=== PATIENT | female | born 1965 | race Two or more races ===

== ENCOUNTER 2017-03-22 14:26 | Inpatient (IN) | payer SELFPAY ==
[~2017-03-22] VITALS: Ht 157.5 cm; Wt 61.2 kg
[2017-03-22] MEDS ORDERED: SODIUM CHLORIDE 0.9% 500 ML IVB ONE (15:02)
[2017-03-22] MEDS ORDERED: ONDANSETRON HCL 4 MG/2 ML VIAL IV ONE (15:15)
[2017-03-22] MEDS ORDERED: metroNIDAZOLE 500MG/100ML 100 ML IV ONE (15:45)
[2017-03-22 16:29] LABS: Mean Corpuscular Hemoglobin 30.5 pg (28.0-32.0); Mean Corpuscular Hgb Conc. 33.4 g/dL (32.0-36.0); Mean Corpuscular Volume 91.2 fL (80.0-100.0); Mean Platelet Volume 8.2 fL (6.9-10.8)
[2017-03-22 16:31] LABS: Hematocrit 54.1 % (36.0-46.0); Hemoglobin 18.1 g/dL (12.2-16.2); Platelet Count (auto) 217 10^3/uL (140-450); Red Cell Distribution Width 13.5 % (11.8-14.3); White Blood Cell 18.2 10^3/uL (4.4-10.8)
[2017-03-22 16:39] LABS: Lactic Acid w/Reflex 2.1 mmol/L (0.4-2.0)
[2017-03-22 16:40] LABS: BUN/Creatinine Ratio 14.3; Bilirubin, Total 0.6 mg/dL (0.2-1.0); Calcium 10.1 mg/dL (8.5-10.1); Magnesium 2.2 mg/dL (1.6-2.6); Potassium 4.8 mmol/L (3.5-5.1); Total Protein 10.4 g/dL (6.4-8.2)
[2017-03-22 17:14] LABS: REFLEX LACTIC ACID YES OR NO YES
[2017-03-22 17:26] LABS: Metamyelocytes % 0; Myelocytes % 0; Promyelocytes % 0; Reactive Lymphocytes 0
[2017-03-22] MEDS ORDERED: MORPHINE SULF INJ 2 MG/ML SYRINGE 1ML IV PRN ×2 (17:30)
[2017-03-22] MEDS ORDERED: HYDROcodone-ACET 5/325MG TAB PO PRN (17:30)
[2017-03-22] MEDS ORDERED: TEMAZEPAM 15 MG CAP PO PRN (17:30)
[2017-03-22] MEDS ORDERED: DEXTROSE (50%) 50ML SYRG IV PRN (17:30)
[2017-03-22] MEDS ORDERED: NITROGLYCERIN 0.4 MG SL TAB SL PRN (17:30)
[2017-03-22] MEDS ORDERED: LEVOFLOXACIN 500MG 100 ML IV ONE (17:30)
[2017-03-22] MEDS: SODIUM CHLORIDE 0.9% 1,000 ML IV SCH (17:49)
[2017-03-22] MEDS: metroNIDAZOLE 500MG/100ML 100 ML IV SCH (17:52)
[2017-03-22 19:28] LABS: Platelet Estimate Adequate
[2017-03-22 20:30] VITALS: BP 129/63
[2017-03-22] MEDS: FAMOTIDINE 20 MG TAB PO SCH (21:49)
[2017-03-22] MEDS: ENALAPRIL MALEATE 2.5 MG TAB PO SCH (21:51)
[2017-03-22] MEDS: ACCU-CHEK COMFORT CURVE STRIP VI SCH (21:57)
[2017-03-22] MEDS: InsuLIN REG 1unit/0.01ml Soln (100units/ml) SC SCH (21:58)
[2017-03-22 22:00] VITALS: BP 129/63
[2017-03-23] MEDS: metroNIDAZOLE 500MG/100ML 100 ML IV SCH ×4 (00:15→18:11)
[2017-03-23] MEDS ORDERED: ENAL2.5T PO (01:22)
[2017-03-23] MEDS ORDERED: LEVO100T8 PO (01:22)
[2017-03-23 04:34] VITALS: BP 116/68
[2017-03-23 06:12] LABS: Basophils # (auto) 0 uL; Eosinophils # (auto) 0 uL; Eosinophils % (auto) 0.2 % (0.0-7.0); Hemoglobin 12.6 g/dL (12.2-16.2); Lymphocytes # (auto) 1.4 uL; Lymphocytes % (auto) 10.7 % (10.0-50.0); Mean Corpuscular Hemoglobin 30.1 pg (28.0-32.0); Mean Corpuscular Hgb Conc. 33.1 g/dL (32.0-36.0); Mean Platelet Volume 8.4 fL (6.9-10.8); Monocytes # (auto) 0.9 uL; Monocytes % (auto) 7.3 % (0.0-12.0); Neutrophils # (auto) 10.4 uL; Neutrophils % (auto) 81.8 % (37.0-80.0); Platelet Count (auto) 171 10^3/uL (140-450); Red Cell Distribution Width 13.2 % (11.8-14.3); White Blood Cell 12.7 10^3/uL (4.4-10.8)
[2017-03-23] MEDS: SODIUM CHLORIDE 0.9% 1,000 ML IV SCH ×3 (06:24→18:28)
[2017-03-23 06:30] LABS: Albumin 2.8 g/dL (3.4-5.0); BUN/Creatinine Ratio 13.8; Calcium 7.6 mg/dL (8.5-10.1); Potassium 3.9 mmol/L (3.5-5.1)
[2017-03-23] MEDS: LEVOTHYROXINE SODIUM 100 MCG TAB PO SCH (06:31)
[2017-03-23] MEDS: ACCU-CHEK COMFORT CURVE STRIP VI SCH ×4 (06:32→21:48)
[2017-03-23] MEDS: InsuLIN REG 1unit/0.01ml Soln (100units/ml) SC SCH ×4 (06:32→21:48)
[2017-03-23 06:33] LABS: Bilirubin, Total 0.5 mg/dL (0.2-1.0); Total Protein 6.5 g/dL (6.4-8.2)
[2017-03-23 08:27] VITALS: BP 112/62
[2017-03-23] MEDS: LEVOFLOXACIN 500MG 100 ML IV SCH (09:48)
[2017-03-23] MEDS: FAMOTIDINE 20 MG TAB PO SCH ×2 (09:50→21:36)
[2017-03-23] MEDS: ENALAPRIL MALEATE 2.5 MG TAB PO SCH ×2 (09:50→21:37)
[2017-03-23] MEDS: MULTIPLE VITAMIN TAB PO SCH (09:51)
[2017-03-23] MEDS: ACETAMINOPHEN 325 MG TAB PO PRN (11:07)
[2017-03-23 13:00] VITALS: BP 136/61
[2017-03-23 14:18] LABS: Urine Bilirubin Negative (Negative); Urine Blood Negative /uL (Negative); Urine Color Yellow (Yellow); Urine Glucose Normal (Normal); Urine Ketone 1+ (Negative); Urine Mucus FEW (None Seen); Urine Nitrite Negative (Negative); Urine RBC <1 /hpf (0 - 4); Urine Squamous Epithelial Cell FEW /hpf (<5); Urine Urobilinogen Normal (Negative)
[2017-03-23] MEDS: ONDANSETRON HCL 4 MG/2 ML VIAL IV PRN ×2 (15:51→21:37)
[2017-03-23 17:48] VITALS: BP 140/63
[2017-03-23] MEDS: Boost Glucose Control 8 Ounces PO SCH ×2 (18:12→21:48)
[2017-03-23 20:00] VITALS: BP 143/70
[2017-03-23 22:00] VITALS: BP 143/70
[2017-03-24] MEDS: metroNIDAZOLE 500MG/100ML 100 ML IV SCH ×3 (00:22→11:58)
[2017-03-24] MEDS: SODIUM CHLORIDE 0.9% 1,000 ML IV SCH ×2 (03:18→11:59)
[2017-03-24 05:00] VITALS: BP 126/79
[2017-03-24 05:16] LABS: Basophils # (auto) 0 uL; Basophils % (auto) 0.1 % (0.0-2.0); Eosinophils # (auto) 0.1 uL; Eosinophils % (auto) 0.8 % (0.0-7.0); Hematocrit 35.6 % (36.0-46.0); Hemoglobin 12.1 g/dL (12.2-16.2); Lymphocytes # (auto) 1.7 uL; Lymphocytes % (auto) 22.1 % (10.0-50.0); Mean Corpuscular Hemoglobin 30.8 pg (28.0-32.0); Mean Corpuscular Hgb Conc. 33.9 g/dL (32.0-36.0); Mean Corpuscular Volume 90.6 fL (80.0-100.0); Mean Platelet Volume 8.2 fL (6.9-10.8); Monocytes # (auto) 0.6 uL; Monocytes % (auto) 8.2 % (0.0-12.0); Neutrophils # (auto) 5.4 uL; Neutrophils % (auto) 68.8 % (37.0-80.0); Platelet Count (auto) 160 10^3/uL (140-450); Red Cell Distribution Width 13.3 % (11.8-14.3); White Blood Cell 7.9 10^3/uL (4.4-10.8)
[2017-03-24 05:33] LABS: Albumin 2.8 g/dL (3.4-5.0); BUN/Creatinine Ratio 7.9; Calcium 7.9 mg/dL (8.5-10.1); Potassium 3.3 mmol/L (3.5-5.1)
[2017-03-24 05:35] LABS: Bilirubin, Total 0.4 mg/dL (0.2-1.0); Total Protein 6.4 g/dL (6.4-8.2)
[2017-03-24] MEDS: Boost Glucose Control 8 Ounces PO SCH ×2 (06:17→11:59)
[2017-03-24] MEDS: ACCU-CHEK COMFORT CURVE STRIP VI SCH ×2 (06:47→11:58)
[2017-03-24] MEDS: InsuLIN REG 1unit/0.01ml Soln (100units/ml) SC SCH ×2 (06:47→11:30)
[2017-03-24] MEDS: LEVOTHYROXINE SODIUM 100 MCG TAB PO SCH (06:47)
[2017-03-24] MEDS: ACETAMINOPHEN 325 MG TAB PO PRN (08:18)
[2017-03-24] MEDS: ONDANSETRON HCL 4 MG/2 ML VIAL IV PRN ×2 (08:53→14:01)
[2017-03-24] MEDS: FAMOTIDINE 20 MG TAB PO SCH (08:55)
[2017-03-24] MEDS: MULTIPLE VITAMIN TAB PO SCH (08:55)
[2017-03-24] MEDS: ENALAPRIL MALEATE 2.5 MG TAB PO SCH (08:55)
[2017-03-24] MEDS: LEVOFLOXACIN 500MG 100 ML IV SCH (08:56)
[2017-03-24 09:00] VITALS: BP 147/60
[2017-03-24] MEDS ORDERED: POTASSIUM CHLORIDE 20 MEQ, LIDOCAINE 1% (LOCAL ANESTH.) 2 ML in SODIUM CHL 0.9% 100 ML IV ONE (09:45)
[2017-03-24 13:00] VITALS: BP 149/74
[2017-03-24 15:33] VITALS: BP 151/85
== END 2017-03-24 16:47 | disposition home or self-care (01) | DRG 918 ==
LOC: ER 14:26 → TELE-EAST 14:27
PROVIDERS: ADMIT Internal Medicine; ATTEND Internal Medicine
DX: T62.8X1A Toxic effect of other specified noxious substances eaten as food, accidental (unintentional), initial encounter (principal); E11.22 Type 2 diabetes mellitus with diabetic chronic kidney disease; E44.0 Moderate protein-calorie malnutrition; R65.10 Systemic inflammatory response syndrome (SIRS) of non-infectious origin without acute organ dysfunction; D75.1 Secondary polycythemia; E11.65 Type 2 diabetes mellitus with hyperglycemia; N18.3 Chronic kidney disease, stage 3 (moderate); E86.0 Dehydration; E03.9 Hypothyroidism, unspecified; I12.9 Hypertensive chronic kidney disease with stage 1 through stage 4 chronic kidney disease, or unspecified chronic kidney disease; J20.9 Acute bronchitis, unspecified; R19.7 Diarrhea, unspecified; R79.89 Other specified abnormal findings of blood chemistry; Z86.73 Personal history of transient ischemic attack (TIA), and cerebral infarction without residual deficits; Z90.49 Acquired absence of other specified parts of digestive tract; Y92.89 Other specified places as the place of occurrence of the external cause; Z68.24 Body mass index [BMI] 24.0-24.9, adult
CPT/HCPCS: 36415; 74176; 80053; 81001; 82150; 82962; 83036; 83605; 83690; 83735; 85007; 85025; 85027; 87040; 87045; 87070; 87086; 87205; 87400; 87493; 87899; 93005; 94761; 96365; 96367; 96375; J1956; J2001; J2405; J3490

== ENCOUNTER 2025-04-05 07:30 | Inpatient (IN) | payer MEDICAID ==
[~2025-04-05] VITALS: Ht 157.5 cm; Wt 58.6 kg
[2025-04-05] VITALS (12 sets, daily range): BP systolic 134–161; BP diastolic 78–89; PULSE 75–115; RESP 16–18; TEMP 97.3–98.4; O2SAT 94–100
[~2025-04-05 07:30] MED LIST: ENAL1TAB42 PO; LEVO100T8 PO
[2025-04-05] MEDS: ALBUTEROL SULF 2.5 MG/0.5ML(0.5%) NEB SOLN NEB ONE (08:02)
[2025-04-05] MEDS: IPRATROPIUM BROM 0.5 MG/2.5ML INH SOL NEB ONE (08:03)
[2025-04-05 08:05] LABS: Hematocrit 41.6 % (36.0-46.0); Hemoglobin 13.9 g/dL (12.2-16.2); Mean Corpuscular Hemoglobin 30.3 pg (28.0-32.0); Mean Corpuscular Volume 90.4 fL (80.0-100.0); Nucleated Red Blood Cells % 0.1 %
[2025-04-05 08:12] LABS: Chloride 103 mmol/L (98-107); Potassium 3.9 mmol/L (3.5-5.1); Sodium 140 mmol/L (136-145)
[2025-04-05 08:13] LABS: Anion Gap 10 (5-15); Calcium 9.7 mg/dL (8.7-10.4); Carbon Dioxide 27 mmol/L (20-31)
[2025-04-05 08:18] LABS: BUN/Creatinine Ratio 11.0 (10.0-20.0); Blood Urea Nitrogen 8 mg/dL (9-23); Glucose 111 mg/dL (74-106)
[2025-04-05] MEDS: methylPREDNISolone SOD SUCC 125 MG/2 ML VL IV ONE (08:29)
--- NOTE | 2025-04-05 08:33 | ED.PDOC ---
SOB-HPI HPI Comments 59 year old female with a PMHx of HTN and Hypothyroidism presents to the emergency department for complaint of shortness of breath. 2 weeks prior, pt began experiencing flu-like symptoms such as chills, fever, cough. In the ED, Pt presents with difficulty breathing, wheezing, and cough. Pt denies associated symptoms of nausea and dizziness. Pt was given breathing treatment which moderately relieved her symptoms. Pt's blood pressure is elevated at 197/85 and pulse at 100, with vitals that are otherwise stable. Pt states the SOB is constant and they note no exacerbating or relieving factors. Pt denies any other symptoms at this time. Chief Complaint: Shortness of Breath Time Seen by MD: 08:26 Primary Care Provider: none Reviewed notes: Nurses Notes Information Source: Patient Mode of Arrival: Ambulatory Severity: Mild Timing: Weeks Duration: Since onset Context: At Rest History of: Other (HTN, Hypothyroidism) Prehospital treatment: Oxygen (Oxygen treatment) Modifying Factors: Nothing Associated Signs and Symptoms: Fever, Wheeze, Cough Quality: Pressure Radiation: No Radiation Location: Chest (R) Past Medical History PAST MEDICAL HISTORY: CVA, HTN, Thyroid Surgical History: Cholecystectomy Social History Smoker: Non-Smoker Alcohol: Denies ETOH Use Drugs: Denies Drug Use Lives In: Home Constitutional: reports: chills, fever; denies: diaphoresis, fatigue, malaise, sweats, weakness, others EENTM: denies: blurred vision, double vision, ear bleeding, ear discharge, ear drainage, ear pain, ear ringing, eye pain, eye redness, hearing loss, mouth pain, mouth swelling, nasal discharge, nose bleeding, nose congestion, nose pain, photophobia, tearing, throat pain, throat swelling, voice changes, others Respiratory: reports: cough, SOB at rest, shortness of breath, SOB with excertion, wheezing; denies: hemoptysis, orthopnea, stridor, others Cardiovascular: denies: chest pain, dizzy spells, diaphoresis, Dyspnea on exertion, edema, irregular heart beat, left arm pain, lightheadedness, palpitations, PND, syncope, others Gastrointestinal: denies: abdomen distended, abdominal pain, blood streaked bowels, constipated, diarrhea, dysphagia, difficulty swallowing, hematemesis, melena, nausea, poor appetite, poor fluid intake, rectal bleeding, rectal pain, vomiting, others Genitourinary: denies: abnormal vagina bleeding, burning, dyspareunia, dysuria, flank pain, frequency, hematuria, incontinence, pain, , vagina discharge, urgency, others Neurological: denies: dizziness, fainting, headache, left sided numbness, left sided weakness, numbness, paresthesia, pre-existing deficit, right sided numbness, right sided weakness, seizure, speech problems, tingling, tremors, weakness, others Musculoskeletal: denies: back pain, gout, joint pain, joint swelling, muscle pain, muscle stiffness, neck pain, others Integumetry: denies: bruises, change in color, change in hair/nails, dryness, laceration, lesions, lumps, rash, wounds, others Allergic/Immunocompromised: denies: Difficulty Healing, Frequent Infections, Hives, Itching, others Hematologic/Lymphatic: denies: anemia, blood clots, easy bleeding, easy bruising, swollen glands, others Endocrine: denies: excessive hunger, excessive sweating, excessive thirst, excessive urination, flushing, intolerance to cold, intolerance to heat, unexplained weight gain, unexplained weight loss, others Psychiatric: denies: anxiety, bipolar disorder, depression, hopeless, panic disorder, schizophrenia, sleepless, suicidal, others All Other Systems: Reviewed and Negative Physical Exam General Appearance: No Apparent Distress, Normal HEENT: Normal ENT Inspection, Pharynx Normal, TMs Normal Neck: Other Respiratory: Wheezing, NOT DONE (Coarse) Cardiovascular: Tachycardia, Other (Tachycardic Tapycnic) Breast Exam: Deferred Gastrointestinal: No Organomegaly, Non Tender, No Pulsatile Mass, Normal Bowel Sounds, Soft Genitalia: Deferred Pelvic: Deferred Rectal: Deferred Extremities: No calf tenderness, Normal capillary refill, Normal inspection, Normal range of motion, Non-tender, No pedal edema Neurologic: Alert, investigative shopper II-XII nml as Tested, No Motor Deficits, Normal Affect, Normal Mood, No Sensory Deficits Cerebellar Function: Normal Reflexes: Normal Skin: Dry, Normal Color, Warm Lymphatic: No Adenopathy Was a procedure done? Was a procedure done?: No Differential Dx Differential Diagnosis: Hypertension, Other (Hypothyroidism) X-Ray, Labs, Meds, VS Vital Signs Date Time Temp Pulse Resp B/P (MAP) Pulse Ox O2 Delivery O2 Flow Rate FiO2 04/05/25 10:16 97.9 91 17 159/66 (97) 99 97.9 04/05/25 08:20 98 18 98 Nasal Cannula* 2 28 04/05/25 08:20 98 Nasal Cannula* 2 28 04/05/25 08:20 97.9 98 18 166/70 (102) 98 97.9 04/05/25 07:56 18 99 Nasal Cannula* 2 28 04/05/25 07:44 85 04/05/25 07:31 97.6 100 18 197/85 94 97.6 Lab Test 04/05/25 10:49 04/05/25 10:46 04/05/25 08:58 04/05/25 07:58 Range/Units Urine Color Light-yellow Yellow Urine Clarity Clear Clear Urine pH 5.0 5.0-9.0 Urine Specific [place] 1.008 1.001-1.035 Urine Protein Negative Negative Urine Ketones Negative Negative Urine Blood Negative Negative /uL Urine Nitrite Negative Negative Urine Bilirubin Negative Negative Urine Urobilinogen Normal Negative mg/dL Urine Leukocyte Esterase Negative Negative /uL Urine RBC 1 0 - 4 /hpf Urine Microscopic WBC 1 0-5 /HPF Urine Squamous Epithelial Cells Few <5 /hpf Urine Bacteria Few H None Seen /hpf Urine Glucose Normal Normal mg/dL Troponin I High Sensitivity 3 L < 3 L 3 L </=34 ng/L White Blood Count 6.3 4.4-10.8 10^3/uL Red Blood Count 4.60 4.0-5.20 10^6/uL Hemoglobin 13.9 12.2-16.2 g/dL Hematocrit 41.6 36.0-46.0 % Mean Corpuscular Volume 90.4 80.0-100.0 fL Mean Corpuscular Hemoglobin 30.3 28.0-32.0 pg Mean Corpuscular Hemoglobin Concent 33.5 32.0-36.0 g/dL Red Cell Distribution Width 13.7 11.8-14.3 % Platelet Count 220 140-450 10^3/uL Mean Platelet Volume 8.0 6.9-10.8 fL Neutrophils (%) (Auto) 64.6 37.0-80.0 % Lymphocytes (%) (Auto) 25.0 10.0-50.0 % Monocytes (%) (Auto) 9.1 0.0-12.0 % Eosinophils (%) (Auto) 1.0 0.0-7.0 % Basophils (%) (Auto) 0.3 0.0-2.0 % Neutrophils # (Auto) 4.0 1.6-8.6 10 ^3/uL Lymphocytes # (Auto) 1.6 0.4-5.4 10 ^3/uL Monocytes # (Auto) 0.6 0-1.3 10 ^3/uL Eosinophils # (Auto) 0.1 0-0.8 10 ^3/uL Basophils # (Auto) 0 0-0.2 10 ^3/uL Nucleated Red Blood Cells 0.1 % Sodium Level 140 136-145 mmol/L Potassium Level 3.9 3.5-5.1 mmol/L Chloride Level 103 98-107 mmol/L Carbon Dioxide Level 27 20-31 mmol/L Anion Gap 10 5-15 Blood Urea Nitrogen 8 L 9-23 mg/dL Creatinine 0.73 0.550-1.02 mg/dL Glomerular Filtration Rate Calc 94 >90 mL/min BUN/Creatinine Ratio 11.0 10.0-20.0 Serum Glucose 111 H 74-106 mg/dL Calcium Level 9.7 8.7-10.4 mg/dL Current Medications Medications (Trade) Dose Ordered Sig/Clary Route Start Time Stop Time Status Last Admin Albuterol (Ventolin Medneb) 5 mg ONCE ONCE NEB 04/05/25 07:45 04/05/25 07:46 DC 04/05/25 08:02 Ipratropium [place] (Atrovent Medneb) 0.5 mg ONCE ONCE NEB 04/05/25 07:45 04/05/25 07:46 DC 04/05/25 08:03 Methylprednisolone Sodium Succinate (Solu Medrol) 125 mg ONCE ONCE IV 04/05/25 07:45 04/05/25 07:46 DC 04/05/25 08:29 [place] [id number] Ph: [phone] DIAGNOSTIC IMAGING Diagnostic Imaging Report : [id number] Signed PATIENT: DEVIN LAO ACCT: [id number] UNIT: [id number] : 1965 LOC: ER ROOM / BED: / AGE / SEX: 59 / F ADM STATUS: REG ER SERVICE ORDERING PHYSICIAN: JORDEN HUANG MD PROCEDURE(s): CXR2 - CHEST TWO VIEWS ROUTINE REASON: SOB ORDER NUMBER(s): [id number], ACCESSION NUMBER(s): [id number] XY CHEST TWO VIEWS ROUTINE CLINICAL HISTORY: SOB COMPARISON: None TECHNIQUE: Frontal and lateral view of the chest was obtained FINDINGS: Lines and Tubes: None Lungs: No focal consolidation. Pleura: No effusion. No pneumothorax. Cardiomediastinal contours: Unremarkable Bones: No acute osseous abnormality. IMPRESSION: 1. No acute cardiopulmonary disease. ATED BY: NIRAV CHAPARRO MD DICTATED DATE/TIME: 04/05/25952 SIGNED BY: NIRAV CHAPARRO MD SIGNED DATE/TIME: 04/05/25952 CC: Time of 1ST Reevaluation: 08:56 Reevaluation 1ST: Unchanged Patient Education/Counseling: Diagnosis, Treatment Family Education/Counseling: No Family Present SEPSIS Sepsis Screen Date sepsis recognized/suspect: Apr 05, 2025 Time Sepsis recognized/suspect: 0732 Recent Procedure: No On Antibiotic Therapy: No Respiratory Rate >20: No Heart Rate >90: Yes Temp<36 C (96.8 F) or >38.3 C: No SBP <90 or MAP <65 mmHG: No New Acute Mental Status Change: No Is the patient on CPAP, BIPAP,: No Physician Orders Chest Two Views Routine (04/05/25 07:37) Heplock Iv (04/05/25 07:37) Oxygen (04/05/25 07:37) Business Information Analyst (04/05/25 07:37) Blood Pressure (04/05/25 07:37) Pulse Oximetry (04/05/25 07:37) Electrocardigram (04/05/25 07:37) Electrocardigram (04/05/25 08:37) Electrocardigram (04/05/25 10:37) Azithromycin Tablet (Zithromax Tablet) (04/05/25 11:30) Vital Signs Date Time Temp Pulse Resp B/P (MAP) Pulse Ox O2 Delivery O2 Flow Rate FiO2 04/05/25 10:16 97.9 91 17 159/66 (97) 99 97.9 04/05/25 08:20 98 18 98 Nasal Cannula* 2 28 04/05/25 08:20 98 Nasal Cannula* 2 28 04/05/25 08:20 97.9 98 18 166/70 (102) 98 97.9 04/05/25 07:56 18 99 Nasal Cannula* 2 28 04/05/25 07:44 85 04/05/25 07:31 97.6 100 18 197/85 94 97.6 Laboratory Tests Test 04/05/25 07:58 White Blood Count 6.3 10^3/uL (4.4-10.8) Medications Medications Dose Ordered Sig/Clary Route Start Time Stop Time Status Last Admin Dose Admin Albuterol 5 mg ONCE ONCE NEB 04/05/25 07:45 04/05/25 07:46 DC 04/05/25 08:02 Ipratropium [place] 0.5 mg ONCE ONCE NEB 04/05/25 07:45 04/05/25 07:46 DC 04/05/25 08:03 Methylprednisolone Sodium Succinate 125 mg ONCE ONCE IV 04/05/25 07:45 04/05/25 07:46 DC 04/05/25 08:29 Departure 1 Departure Time of Disposition: 11:27 (Patient presented with acute shortness of breath concerning for acute on chronic COPD Exacerbation, Pneumonia, ACS, CHF, Pneumothorax. Less likely PE, Dissection. Data: 1. I ordered and reviewed the result of at least 3 labs including a CBC, BMP, and Troponin. 2. I independently interpreted the following tests: Chest X-ray shows .Risk:This patient has a high risk of morbidity due to further diagnostic testing or treatment and may suffer from respiratory or cardiac etiology . Workup reveals a likely COPD Exacerbation and patient should be admitted for further workup. and possible expert consultation.) Impression: Primary Impression: Acute and chronic respiratory failure Additional Impression: Shortness of breath Disposition: ADMITTED INPATIENT Admit to: Med Surg Condition: Guarded Critical Care Note Critical Care Time?: Yes Critical care comment: Acute shortness of breath Authorized and Performed by: Jorden Huang MD Total critical care time: Approximately 39 minutes Due to a high probability of clinically significant, life threatening deterioration, the patient required my highest level of preparedness to intervene emergently and I personally spent this critical care time directly and personally managing the patient. This critical care time included obtaining a history; examining the patient; pulse oximetry; ordering and review of studies; arranging urgent treatment with development of a management plan; evaluation of patient's response to treatment; frequent reassessment; and, discussions with other providers. This critical care time was performed to assess and manage the high probability of imminent, life-threatening deterioration that could result in multi-organ failure. It was exclusive of separately billable procedures and treating other patients and teaching time. Please see my other sections and the rest of the note for further information on patient assessment and treatment. Stability Stability form required: No Heart Score Heart Score: Heart Score Response (Comments) Value History N/A 0 EKG N/A 0 Age N/A 0 Risk Factors N/A 0 Troponin N/A 0 Total 0 I personally scribed for JORDEN HUANG MD ([email or web address]) on 04/05/25 at 08:33. Electronically submitted by Christel Dominguez ([email or web address]). I personally scribed for JORDEN HUANG MD ([email or web address]) on 04/05/25 at 10:31. Electronically submitted by Christel Dominguez ([email or web address]). JORDEN HUANG MD Apr 05, 2025 08:33
--- NOTE | 2025-04-05 09:56 | DVH ---
XY CHEST TWO VIEWS ROUTINE CLINICAL HISTORY: SOB COMPARISON: None TECHNIQUE: Frontal and lateral view of the chest was obtained FINDINGS: Lines and Tubes: None Lungs: No focal consolidation. Pleura: No effusion. No pneumothorax. Cardiomediastinal contours: Unremarkable Bones: No acute osseous abnormality. IMPRESSION: 1. No acute cardiopulmonary disease.
[2025-04-05 11:01] LABS: Urine Protein, UAD Negative (Negative)
[2025-04-05] MEDS ORDERED: ONDANSETRON HCL 4 MG/2 ML VIAL IV PRN (12:00)
[2025-04-05] MEDS ORDERED: MORPHINE SULFATE 4 MG/ML SYR/VIAL IV PRN (12:00)
[2025-04-05] MEDS ORDERED: NITROGLYCERIN 0.4 MG SL TAB SL PRN ×2 (12:00)
--- NOTE | 2025-04-05 12:04 | DVHHP2 ---
History of Present Illness Reason for Visit: chest pain and sob History of Present Illness 59-year-old female with a past medical history significant for hypertension, hypothyroidism, prior cerebrovascular accident (CVA), remote thyroid surgery with prior tracheal tube placement approximately 30 years ago resulting in chronic inspiratory stridor, and prior cholecystectomy, who presents with shortness of breath for approximately two weeks. The patient reports progressive dyspnea over the last two weeks, describing difficulty breathing and intermittent wheezing associated with cough. She also reports right-sided chest pain that began yesterday. She denies fever, chills, syncope, lower extremity swelling, or hemoptysis. She endorses clear sputum production. She does not use supplemental oxygen at home, but is currently requiring oxygen support in the hospital. She notes chronic noisy breathing related to her remote thyroid surgery and tracheal instrumentation but states that her current shortness of breath feels worse than baseline. She denies dysuria or urinary symptoms. In the emergency department, she received albuterol and ipratropium nebulizer treatments, with partial improvement. Laboratory evaluation demonstrated unremarkable CBC and CMP, negative troponins x3, and non-concerning urinalysis. Chest x-ray showed no acute cardiopulmonary process. Given persistent symptoms and chest discomfort, she is admitted for cardiac evaluation and further monitoring will check ddimer to eval for pulmonary embolism Past Medical History See HPI above Past Surgical History See HPI above Family History Reviewed, non-contributory to the management of this case. Past Social History The patient lives at home, denies smoking, alcohol or illicit drugs abuse. Review of Systems Constitutional: No: Fever, Chills, Sweats, Weakness, Malaise, Other Eyes: No: Pain, Vision change, Conjunctivae inflammation, Eyelid inflammation, Other, Redness ENT: No: Ear pain, Ear discharge, Nose pain, Nose discharge, Nose congestion, Mouth pain, Mouth swelling, Throat pain, Throat swelling, Other Respiratory: Shortness of breath, SOB with excertion, Wheezing; No: Cough, Dry, Hemoptysis, Pleuritic Pain, Sputum, Wheezing, Other Cardiovascular: Chest Pain; No: Palpitations, Orthopnea, Paroxysmal Noc. Dyspnea, Edema, Lt Headedness, Other Gastrointestinal: No: Nausea, Vomiting, Abdominal Pain, Diarrhea, Constipation, Melena, Hematochezia, Other Genitourinary: No Dysuria, No Frequency, No Incontinence, No Hematuria, No Retention, No Other Musculoskeletal: No: other, neck pain, shoulder pain, arm pain, back pain, hand pain, leg pain, foot pain Skin: No: Rash, Lesions, Jaundice, Bruising, Other Neurological: No: Weakness, Numbness, Incoordination, Change in speech, Confusion, Seizures, Other Allergies: Coded Allergies: Penicillins (Verified Allergy, Unknown, 03/22/17) Medications Current Medications Medications Dose Ordered Sig/Clary Route Start Time Stop Time Status Last Admin Dose Admin Aspirin 81 mg DAILY PO 04/06/25 10:00 UNV Exam Vital Signs Vital Signs Date Time Temp Pulse Resp B/P (MAP) Pulse Ox O2 Delivery O2 Flow Rate FiO2 04/05/25 10:16 97.9 91 17 159/66 (97) 99 97.9 04/05/25 08:20 Nasal Cannula* 2 28 General Appearance: Alert, Oriented X3, Cooperative, Other (Audible wheezes heard patient states it is at her baseline) HEENT: Atraumatic, PERRLA, EOMI, Mucous membr. moist/pink Respiratory: Clear to auscultation, Normal air movement Cardiovascular: Regular rate, Normal S1, Normal S2, No murmurs Abdominal: Normal bowel sounds, Soft, No tenderness, No hepatospenomegaly, No masses Extremities: No clubbing, No cyanosis, No edema, Normal pulses, No tenderness/swelling Skin: No rashes, No breakdown, No significant lesion Neuro: Other (Neuro nonfocal) Psych/Mental Status: Mental status NL, Mood NL Labs/Xrays able chest x-ray unremarkable I reviewed labs, imaging CT scan abdomen pelvis, EKG and all diagnostic studies on this patient from ED records and the medical chart Labs Test 04/05/25 10:49 04/05/25 10:46 04/05/25 07:58 Range/Units Urine Color Light-yellow Yellow Urine Clarity Clear Clear Urine pH 5.0 5.0-9.0 Urine Specific [place] 1.008 1.001-1.035 Urine Protein Negative Negative Urine Ketones Negative Negative Urine Blood Negative Negative /uL Urine Nitrite Negative Negative Urine Bilirubin Negative Negative Urine Urobilinogen Normal Negative mg/dL Urine Leukocyte Esterase Negative Negative /uL Urine RBC 1 0 - 4 /hpf Urine Microscopic WBC 1 0-5 /HPF Urine Squamous Epithelial Cells Few <5 /hpf Urine Bacteria Few H None Seen /hpf Urine Glucose Normal Normal mg/dL Troponin I High Sensitivity 3 L </=34 ng/L White Blood Count 6.3 4.4-10.8 10^3/uL Red Blood Count 4.60 4.0-5.20 10^6/uL Hemoglobin 13.9 12.2-16.2 g/dL Hematocrit 41.6 36.0-46.0 % Mean Corpuscular Volume 90.4 80.0-100.0 fL Mean Corpuscular Hemoglobin 30.3 28.0-32.0 pg Mean Corpuscular Hemoglobin Concent 33.5 32.0-36.0 g/dL Red Cell Distribution Width 13.7 11.8-14.3 % Platelet Count 220 140-450 10^3/uL Mean Platelet Volume 8.0 6.9-10.8 fL Neutrophils (%) (Auto) 64.6 37.0-80.0 % Lymphocytes (%) (Auto) 25.0 10.0-50.0 % Monocytes (%) (Auto) 9.1 0.0-12.0 % Eosinophils (%) (Auto) 1.0 0.0-7.0 % Basophils (%) (Auto) 0.3 0.0-2.0 % Neutrophils # (Auto) 4.0 1.6-8.6 10 ^3/uL Lymphocytes # (Auto) 1.6 0.4-5.4 10 ^3/uL Monocytes # (Auto) 0.6 0-1.3 10 ^3/uL Eosinophils # (Auto) 0.1 0-0.8 10 ^3/uL Basophils # (Auto) 0 0-0.2 10 ^3/uL Nucleated Red Blood Cells 0.1 % Sodium Level 140 136-145 mmol/L Potassium Level 3.9 3.5-5.1 mmol/L Chloride Level 103 98-107 mmol/L Carbon Dioxide Level 27 20-31 mmol/L Anion Gap 10 5-15 Blood Urea Nitrogen 8 L 9-23 mg/dL Creatinine 0.73 0.550-1.02 mg/dL Glomerular Filtration Rate Calc 94 >90 mL/min BUN/Creatinine Ratio 11.0 10.0-20.0 Serum Glucose 111 H 74-106 mg/dL Calcium Level 9.7 8.7-10.4 mg/dL SEPSIS Sepsis Screen Date sepsis recognized/suspect: Apr 05, 2025 Time Sepsis recognized/suspect: 0820 Recent Procedure: No On Antibiotic Therapy: No Respiratory Rate >20: No Heart Rate >90: Yes Temp<36 C (96.8 F) or >38.3 C: No SBP <90 or MAP <65 mmHG: No New Acute Mental Status Change: No Is the patient on CPAP, BIPAP,: No Physician Orders Chest Two Views Routine (04/05/25 07:37) Heplock Iv (04/05/25 07:37) Oxygen (04/05/25 07:37) Mail Courier (04/05/25 07:37) Blood Pressure (04/05/25 07:37) Pulse Oximetry (04/05/25 07:37) Electrocardigram (04/05/25 07:37) Electrocardigram (04/05/25 08:37) Electrocardigram (04/05/25 10:37) Admit (04/05/25 11:51) Code Status (04/05/25 11:51) Vital Signs .PER UNIT PROTOCOL (04/05/25 11:51) Mail Courier (04/05/25 11:51) May Elevate Hob ____ Degrees (04/05/25 11:51) Cardiac Diet-2gna,Lofat,Lochol (04/05/25 Lunch) Aspirin Chewable Tablet (04/06/25 10:00) Atorvastatin (Lipitor) (04/05/25 22:00) Morphine Sulfate Injection (04/05/25 12:00) Acetaminophen Tablet (Tylenol Tablet) (04/05/25 12:00) Docusate Sodium Capsule (Colace Capsule) (04/06/25 10:00) Oxygen By Nasal Cannula (04/05/25 11:51) Complete Blood Count (04/06/25 04:00) Comprehensive Metabolic Panel (04/06/25 04:00) Echo 2d Mode Cardiac Dop (04/05/25 11:51) Nitroglycerin Sublingual (Ntrostat Subli (04/05/25 12:00) Ondansetron Hcl (Zofran) (04/05/25 12:00) Lipase (04/05/25 11:51) Electrocardigram (04/05/25 11:51) Troponin-I Hs (04/05/25 11:51) Cardiac Rehabilitation - Outpa (04/05/25 ) Nitroglycerin Sublingual (Ntrostat Subli (04/05/25 12:00) Stat Ekg For Chest Pain (04/05/25 11:51) Notify Of Changes From Base (04/05/25 11:51) Assembler Unit For 24 Hours (04/05/25 11:51) Emergency Dysrhythmia Protocol (04/05/25 11:51) Rhythm Strips Once Every Shift (04/05/25 11:51) Oxygen By Nasal Cannula (04/05/25 11:51) Troponin-I Hs (04/05/25 12:51) Troponin-I Hs (04/05/25 14:51) D-Dimer (04/05/25 11:51) Methylprednisolone Sod Succ (Solu Medrol (04/05/25 14:00) Pantoprazole (Protonix) (04/05/25 12:00) Pantoprazole (Protonix) (04/06/25 10:00) Vital Signs Date Time Temp Pulse Resp B/P (MAP) Pulse Ox O2 Delivery O2 Flow Rate FiO2 04/05/25 10:16 97.9 91 17 159/66 (97) 99 97.9 04/05/25 08:20 98 18 98 Nasal Cannula* 2 28 04/05/25 08:20 98 Nasal Cannula* 2 28 04/05/25 08:20 97.9 98 18 166/70 (102) 98 97.9 04/05/25 07:56 18 99 Nasal Cannula* 2 28 04/05/25 07:44 85 04/05/25 07:31 97.6 100 18 197/85 94 97.6 Laboratory Tests Test 04/05/25 07:58 White Blood Count 6.3 10^3/uL (4.4-10.8) Medications Medications Dose Ordered Sig/Clary Route Start Time Stop Time Status Last Admin Dose Admin Albuterol 5 mg ONCE ONCE NEB 04/05/25 07:45 04/05/25 07:46 DC 04/05/25 08:02 5 MG Ipratropium [place] 0.5 mg ONCE ONCE NEB 04/05/25 07:45 04/05/25 07:46 DC 04/05/25 08:03 0.5 MG Methylprednisolone Sodium Succinate 125 mg ONCE ONCE IV 04/05/25 07:45 04/05/25 07:46 DC 04/05/25 08:29 125 MG Assessment/Plan Assessment/Plan 59-year-old female admitted for subacute shortness of breath with chest pain, requiring cardiac workup and telemetry monitoring, with unrevealing initial ED evaluation. acute hypoxic resp failure needing o2 Shortness of breath Two-week duration, worse than baseline Chest x-ray unremarkable Continue bronchodilator atc Supplemental oxygen to maintain SpO2 >92% Monitor respiratory status ordered atc solumedrol and protonix while on steriods ordered ddimer fu results acute Chest pain, atypical right chest wall Right-sided chest pain since yesterday Troponin negative 3 No ischemic changes on ekg ordered Echocardiogram ordered Telemetry monitoring if abnormal findings will consult cards chronic problems Chronic stridor secondary to prior thyroid surgery Long-standing, stable baseline condition Monitor for airway compromise Hypertension Continue home antihypertensive Hypothyroidism, status post thyroid surgery Continue thyroid hormone replacement History of CVA No acute neurologic deficits Continue secondary prevention Gastroesophageal reflux disease (suspected) Started on Protonix Chronic stridor due to prior thyroid surgery Status post cholecystectomy FEN / PPx Fluids: PO hydration Electrolytes: Monitor BMP Nutrition: Regular diet DVT Prophylaxis: SCDs GI Prophylaxis: Protonix Disposition Admit to telemetry for continued monitoring, completion of echocardiogram, and further cardiac evaluation. Cardiology consult deferred at this time Plan discussed with: Patient My Orders Orders - KEN PATTERSON DNP Procedure Category Date Status Time Admit ADMIT 04/05/25 Transmitted 11:51 Code Status CODE 04/05/25 Transmitted 11:51 Vital Signs PJ 04/05/25 In Process 11:51 Mail Courier PJ 04/05/25 In Process 11:51 May Elevate Hob ____ PJ 04/05/25 In Process Degrees 11:51 Cardiac DIET 04/05/25 Transmitted Diet-2gna,Lofat,Lochol Lunch Aspirin Chewable PHA 04/06/25 Logged Tablet 10:00 Atorvastatin (Lipitor) PHA 04/05/25 Logged 22:00 Morphine Sulfate PHA 04/05/25 Logged Injection 12:00 Acetaminophen Tablet PHA 04/05/25 Logged (Tylenol Tablet) 12:00 Docusate Sodium PHA 04/06/25 Logged Capsule (Colace 10:00 Oxygen By Nasal RT 04/05/25 Transmitted Cannula 11:51 Complete Blood Count LAB 04/06/25 Verified 04:00 Comprehensive LAB 04/06/25 Verified Metabolic Panel 04:00 Echo 2d Mode Cardiac US 04/05/25 Logged DOP 11:51 Nitroglycerin PHA 04/05/25 Logged Sublingual (Ntrostat 12:00 Ondansetron Hcl PHA 04/05/25 Logged (Zofran) 12:00 Lipase LAB 04/05/25 Logged 11:51 Electrocardigram EKG 04/05/25 Logged 11:51 Troponin-I Hs LAB 04/05/25 Logged 11:51 Cardiac PJ 04/05/25 In Process Rehabilitation - Outpa Nitroglycerin PHA 04/05/25 Logged Sublingual (Ntrostat 12:00 Stat Ekg For Chest PJ 04/05/25 In Process Pain 11:51 Notify Md Of Changes [facility] 04/05/25 In Process From Base 11:51 Assembler Unit For PJ 04/05/25 In Process 24 Hours 11:51 Emergency Dysrhythmia [facility] 04/05/25 In Process Protocol 11:51 Rhythm Strips Once [facility] 04/05/25 In Process Every Shift 11:51 Oxygen By Nasal RT 04/05/25 Transmitted Cannula 11:51 Troponin-I Hs LAB 04/05/25 Logged 12:51 Troponin-I Hs LAB 04/05/25 Logged 14:51 D-Dimer LAB 04/05/25 Logged 11:51 Methylprednisolone PHA 04/05/25 Logged Sod Succ (Solu Medrol 14:00 Pantoprazole PHA 04/05/25 Logged (Protonix) 12:00 Pantoprazole PHA 04/06/25 Logged (Protonix) 10:00 Date of Service: Apr 05, 2025 Billing Provider: KEN PATTERSON DNP Common Visit Codes: [id number] INP/OBS CARE (HIGH) KEN PATTERSON DNP Apr 05, 2025 12:04
[2025-04-05] MEDS: AZITHROMYCIN 250 MG TAB PO ONE (12:19)
[2025-04-05] MEDS: ALBUTEROL SULF 2.5 MG/0.5ML(0.5%) NEB SOLN NEB SCH (14:20)
[2025-04-05] MEDS: IPRATROPIUM BROM 0.5 MG/2.5ML INH SOL NEB SCH (14:20)
[2025-04-05] MEDS: methylPREDNISolone SOD SUCC 40 MG/ML VL IV SCH (15:12)
[2025-04-05] MEDS: PANTOPRAZOLE 40 MG/10 ML VIAL INJ IV ONE (15:12)
[2025-04-05] MEDS: IOHEXOL 350 MG/ML 100ML IJ ONE (16:07)
--- NOTE | 2025-04-05 17:32 | DVH ---
EXAM: CT CT ANGIO CHEST CONTRAST HISTORY: eval for pe elevated ddimer sob TECHNIQUE: CT angiogram was performed. CT scans at this facility use dose modulation, iterative reconstruction, and/or weight based dosing when appropriate to reduce radiation dose to as low as reasonably achievable. Coronal and sagittal reformations and maximum intensity projection images were created from the transaxial source data by the pathology technologist and workstation, as well as 3-D volume rendered images with MIPs. COMPARISON: XY CHEST TWO VIEWS ROUTINE on DOS: 04/05/25 FINDINGS: [LOWER NECK]: Question small area of upper thoracic to lower neck junction tracheal narrowing of indeterminate etiology correlate for tracheal stenosis (3- 21). [LYMPH NODES/MEDIASTINUM]: No abnormal lymph nodes by CT size criteria [CARDIOVASCULAR]: Normal cardiac size. No pericardial effusion. No aneurysmal dilatation of the great vessels. Bovine arch. No significant coronary artery calcifications. 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 Correlate for postprandial type pain. [PULMONARY ARTERIES]: No pulmonary arterial filling defect. Normal caliber of the main pulmonary artery. No evidence of elevated right heart pressures. [UPPER ABDOMEN]: Unremarkable. [MUSCULOSKELETAL]: No acute fracture or aggressive focal osseous lesion. Multilevel degenerative change of the visualized spine. [CHEST WALL]: Unremarkable. [LUNG PARENCHYMA/PLEURAL SPACE]: No consolidation, suspicious focal airspace opacity, or suspicious nodules. No pleural effusion or pneumothorax. IMPRESSION: 1. No CTA evidence of an acute pulmonary embolism. 2. Question small area of upper thoracic to lower neck junction tracheal narrowing of indeterminate etiology correlate for tracheal stenosis. 3. 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 4. Correlate for postprandial type pain.
[2025-04-05] MEDS: ATORVASTATIN 20 MG TAB PO SCH (21:00)
[2025-04-05] MEDS: ENOXAPARIN SOD 60 MG/0.6 ML SYRINGE SC SCH (21:00)
[2025-04-06] VITALS (20 sets, daily range): BP systolic 128–146; BP diastolic 59–83; PULSE 71–106; RESP 17–20; TEMP 97–98.2; O2SAT 94–100
[2025-04-06 06:19] LABS: Hematocrit 41.2 % (36.0-46.0); Hemoglobin 13.9 g/dL (12.2-16.2); Mean Corpuscular Hemoglobin 30.7 pg (28.0-32.0); Mean Corpuscular Volume 91.1 fL (80.0-100.0); Nucleated Red Blood Cells % 0.1 %
[2025-04-06 06:30] LABS: Alanine Aminotransferase 21 U/L (7-40); Albumin 4.4 g/dL (3.2-4.8); Alkaline Phosphatase 111 U/L (46-116); Anion Gap 11 (5-15); BUN/Creatinine Ratio 10.3 (10.0-20.0); Calcium 9.5 mg/dL (8.7-10.4); Carbon Dioxide 24 mmol/L (20-31); Chloride 105 mmol/L (98-107); Potassium 3.9 mmol/L (3.5-5.1); Sodium 140 mmol/L (136-145); Total Protein 7.8 g/dL (5.7-8.2)
[2025-04-06 06:31] LABS: Bilirubin, Total 0.5 mg/dL (0.2-1.0)
[2025-04-06 06:38] LABS: Blood Urea Nitrogen 6 mg/dL (9-23); Glucose 158 mg/dL (74-106)
[2025-04-06] MEDS: DOCUSATE SOD 100 MG CAP PO SCH (10:00)
[2025-04-06] MEDS: PANTOPRAZOLE 40 MG/10 ML VIAL INJ IV SCH (10:00)
[2025-04-06] MEDS: IBUPROFEN 400 MG TAB PO ONE (12:21)
--- NOTE | 2025-04-06 12:54 | DVHSR ---
APPROVED REPORT EXAM: Two-dimensional and M-mode echocardiogram with Doppler and color Doppler. Blood Pressure: 142/79 mmHg INDICATION Chest Pain RISK FACTORS Height: 5'2, Weight: 128 DIMENSIONS LVDd 3.7 (3.8-5.7cm) LA (2D) 2.9 (1.9-4.0cm) Aortic Root 2.6 (2.0-3.7cm) LVDs 2.8 (2.5-4.0cm) LA (MM) (1.9-4.0cm) Aortic Cusp Exc 2.0 (1.5-2.0cm) EF (%) 55.0 (55-70%) Rt. Atrium 4.0 (1.9-4.0cm) Asc. Aorta 3.0 cm IVSd 0.7 (0.7-1.1cm) RV (D) (1.8-2.4cm) PWd 0.8 (0.7-1.1cm) Mitral Valve Mitral Mitral Stenosis E wave 0.94m/s MV Mean GR. mmHg A wave 1.29m/s MV Peak GR. 89mmHg E/A ratio 0.7 2D MVA cm2 DECEL Time 117ms PRESS 1/2 Time ms Aortic Valve Aortic Valve Aortic Stenosis V1 1.21m/s AO Mean GR. 7mmHg V2 1.67m/s AO Peak GR. 11mmHg LVOT Diameter 2.1 (1.8-2.4cm) Doppler ROCAEL 2.51cm2 Pulmonic Valve V2 1.25m/s Tricuspid Valve TR Velocity 2.61m/s RVSP 27mmHg Other Information Technically limited study due to body habitus.pt very anxious unable to hold breathe/ follow commands Conclusion 1-Normal right and left ventricle systolic function with estimated ejection fraction of 55%. Normal LV wall motion 2-Mild aortic, mitral and tricuspid regurgitation
--- NOTE | 2025-04-06 16:45 | DVHPNRES ---
Progress Note Date Seen: Apr 06, 2025 Resident Creating Document: DANY JORDAN RESIDENT Medical Necessity Reason Pt with a Central, PICC or Fol: No Subjective Review of Systems 59-year-old female with a past medical history significant for hypertension, hypothyroidism, prior cerebrovascular accident (CVA), remote thyroid surgery with prior tracheal tube placement approximately 30 years ago resulting in chronic inspiratory stridor, and prior cholecystectomy, who presents with shortness of breath for approximately two weeks. The patient reports progressive dyspnea over the last two weeks, describing difficulty breathing and intermittent wheezing associated with cough. She also reports right-sided chest pain that began yesterday. She denies fever, chills, syncope, lower extremity swelling, or hemoptysis. She endorses clear sputum production. She does not use supplemental oxygen at home, but is currently requiring oxygen support in the hospital. She notes chronic noisy breathing related to her remote thyroid surgery and tracheal instrumentation but states that her current shortness of breath feels worse than baseline. She denies dysuria or urinary symptoms. In the emergency department, she received albuterol and ipratropium nebulizer treatments, with partial improvement. Laboratory evaluation demonstrated unremarkable CBC and CMP, negative troponins x3, and non-concerning urinalysis. Chest x-ray showed no acute cardiopulmonary process. Given persistent symptoms and chest discomfort, she is admitted for cardiac evaluation and further monitoring will check d-dimer to eval for pulmonary embolism. CT angiogram was done, which ruled out pulmonary embolism. Past medical history: As above Past surgical history: As above Family history: Noncontributory Allergies: None Home medications: PCP: Denies smoking,alcohol, drugs abuse Full code status Patient was seen and examined at bedside today. She reports improvement in her chest pain and shortness of breaths. Multiple family members were accompanying the patient. All questions were answered at bedside. Objective vital signs Vital Sign Date Time Temp Pulse Resp B/P (MAP) Pulse Ox O2 Delivery O2 Flow Rate FiO2 04/06/25 13:49 94 18 99 04/06/25 13:43 Nasal Cannula 2.0 04/06/25 13:43 28 04/06/25 13:00 97.8 140/69 (92) 97.8 Total Intake and Output 04/05/25 04/05/25 04/06/25 15:00 23:00 07:00 Intake Total 0 ml 500 ml Balance 0 ml 500 ml medications Current Medications Medications Dose Ordered Sig/Clary Route Start Time Stop Time Status Last Admin Dose Admin Aspirin 81 mg DAILY PO 04/06/25 10:00 04/06/25 10:12 81 MG Atorvastatin Calcium 40 mg HS PO 04/05/25 22:00 04/05/25 21:00 40 MG Morphine Sulfate 2 mg Q30MP PRN IV 04/05/25 12:00 Acetaminophen 325 mg Q4HP PRN PO 04/05/25 12:00 Docusate Sodium 100 mg DAILY PO 04/06/25 10:00 Nitroglycerin 0.4 mg Q5MINP PRN SL 04/05/25 12:00 Ondansetron HCl 4 mg Q4HP PRN IV 04/05/25 12:00 Methylprednisolone Sodium Succinate 40 mg Q8HR IV 04/05/25 14:00 04/06/25 14:20 40 MG Pantoprazole Sodium 40 mg DAILY IV 04/06/25 10:00 Albuterol 2.5 mg Q4HR NEB 04/05/25 14:00 04/06/25 13:43 2.5 MG Ipratropium [place] 0.5 mg Q4HR NEB 04/05/25 14:00 04/06/25 13:43 0.5 MG Enoxaparin Sodium 60 mg Q12HR SC 04/05/25 22:00 04/05/25 21:00 60 MG Examination Pt is lying on bed General Appearance: Alert, Oriented X3, Cooperative, Mild distress, using nasal cannula oxygen HEENT: Atraumatic, Mucous membranes moist/pink Respiratory: Bilateral crackles present, Normal air movement, No added sounds Cardiovascular: Regular rate, Normal S1, Normal S2, No murmurs Abdominal/ : Active bowel sounds, Soft, no distention, no tenderness Extremities: 1+ edema, Normal pulses, No tenderness/swelling Skin: No Significant rash, except past surgical scars Neuro: Normal speech, sensorimotor deficits none Psych/Mental Status: Mental status NL, Mood NL Nurse was there as software installer during examination laboratory and microbiology Laboratory Tests 04/06/25 05:39 Test 04/06/25 05:39 Range/Units Serum Glucose 158 H 74-106 mg/dL Labs and/or images reviewed: Labs reviewed by me, Image(s) reviewed by me Problem List/Assessment/Plan Problem List/Assessment/Plan Acute hypoxic respiratory failure Chest x-ray unremarkable Continue bronchodilator atc Supplemental oxygen to maintain SpO2 >92% solumedrol and protonix ordered ddimer fu results CT angiogram negative for pulmonary embolism Chest pain rule out ACS Right-sided chest pain since yesterday Troponin negative 3 No ischemic changes on ekg Echocardiogram completed today on 03/28/2025:- Normal right and left ventricle systolic function with estimated ejection fraction of 55%. Normal LV wall motion 2-Mild aortic, mitral and tricuspid regurgitation Telemetry monitoring Chronic stridor secondary to prior thyroid surgery Hypertensive heart disease Hypothyroidism status post thyroid surgery History of CVA GERD Status post cholecystectomy GI prophylaxis: Pantoprazole DVT prophylaxis: Lovenox Diet: Cardiac Goals of care discussed with the patient for more than 27 minutes: Full code status Case discussed with Dr. Caceres, patient and RN Plan discussed with: Patient, Other (RN) Visit Coding STANDARD RES Billing Provider: SHIRIN CACERES MD Date of Service if different f: Apr 06, 2025 Common Visit Codes: [id number] INP/OBS CARE(HIGH) DANY JORDAN RESIDENT Apr 06, 2025 16:45 SHIRIN CACERES MD Apr 06, 2025 23:55
[2025-04-06] MEDS: ACETAMINOPHEN 325 MG TAB PO PRN (22:16)
[2025-04-07] VITALS (19 sets, daily range): BP systolic 126–145; BP diastolic 60–74; PULSE 76–111; RESP 16–20; TEMP 97.7–98.5; O2SAT 94–100
[2025-04-07 07:09] LABS: Hematocrit 38.1 % (36.0-46.0); Hemoglobin 12.7 g/dL (12.2-16.2); Mean Corpuscular Hemoglobin 30.2 pg (28.0-32.0); Mean Corpuscular Volume 90.4 fL (80.0-100.0); Nucleated Red Blood Cells % 0.0 %
[2025-04-07 08:41] LABS: Alanine Aminotransferase 23 U/L (7-40); Albumin 4.1 g/dL (3.2-4.8); Alkaline Phosphatase 106 U/L (46-116); Anion Gap 11 (5-15); BUN/Creatinine Ratio 14.9 (10.0-20.0); Bilirubin, Total 0.5 mg/dL (0.2-1.0); Blood Urea Nitrogen 10 mg/dL (9-23); Calcium 9.5 mg/dL (8.7-10.4); Carbon Dioxide 29 mmol/L (20-31); Chloride 102 mmol/L (98-107); Potassium 4.3 mmol/L (3.5-5.1); Sodium 142 mmol/L (136-145); Total Protein 7.3 g/dL (5.7-8.2)
[2025-04-07 08:42] LABS: Glucose 139 mg/dL (74-106)
--- NOTE | 2025-04-07 14:46 | DVHPN2 ---
Subjective The patient seen and examined at bedside. Feel a little bit better. Reviewed: Care Plan, H&P, Labs, Medications, Previous Orders, Radiology Changes from previous H/P or p: No Changes Eyes: No Pain, No Vision change, No Conjunctivae inflammation, No Eyelid inflammation, No Other, No Redness ENT: No Ear pain, No Ear discharge, No Nose pain, No Nose discharge, No Nose congestion, No Mouth pain, No Mouth swelling, No Throat pain, No Throat swelling, No Other Cardiovascular: Chest Pain; No Palpitations, No Orthopnea, No Paroxysmal Noc. Dyspnea, No Edema, No Lt Headedness, No Other Respiratory: No Cough, No Dry; Shortness of breath, SOB with excertion, W heezing; No Hemoptysis, No Pleuritic Pain, No Sputum, No Other Gastrointestinal: No Nausea, No Vomiting, No Abdominal Pain, No Diarrhea, No Constipation, No Melena, No Hematochezia, No Other Genitourinary: No Dysuria, No Frequency, No Incontinence, No Hematuria, No Retention, No Other Musculoskeletal: No other, No neck pain, No shoulder pain, No arm pain, No back pain, No hand pain, No leg pain, No foot pain Skin: No Rash, No Lesions, No Jaundice, No Bruising, No Other Objective Vitals Vital Signs Date Time Temp Pulse Resp B/P (MAP) Pulse Ox O2 Delivery O2 Flow Rate FiO2 04/07/25 13:00 97.7 76 20 129/73 (91) 96 97.7 04/07/25 08:00 Nasal Cannula* 2 28 Intake/Output Intake and Output 04/07/25 07:00 Intake Total 2190 ml Output Total 1000 ml Balance 1190 ml Intake Oral 2190 ml Output Urine Total 1000 ml # Voids 3 # Bowel Movements 2 General Appearance: Alert, Oriented X3, Cooperative, mild distress HEENT: Atraumatic, PERRLA, EOMI, Mucous membr. moist/pink Neck: Supple Lungs: Clear to auscultation, Other (Decrease Breath sound bilateral with wheezing.) Cardiovascular: Regular rate, Normal S1, Normal S2, No murmurs, Gallops, Rubs Abdomen: Normal bowel sounds, Soft, No tenderness Neuro: Cranial nerves 3-12 NL Psych/Mental Status: Mental status NL Medications Current Medications Medications Dose Ordered Sig/Clary Route Start Time Stop Time Status Last Admin Dose Admin Aspirin 81 mg DAILY PO 04/06/25 10:00 04/07/25 09:36 81 MG Atorvastatin Calcium 40 mg HS PO 04/05/25 22:00 04/06/25 22:04 40 MG Morphine Sulfate 2 mg Q30MP PRN IV 04/05/25 12:00 Acetaminophen 325 mg Q4HP PRN PO 04/05/25 12:00 04/07/25 09:37 325 MG Docusate Sodium 100 mg DAILY PO 04/06/25 10:00 04/07/25 09:38 100 MG Nitroglycerin 0.4 mg Q5MINP PRN SL 04/05/25 12:00 Ondansetron HCl 4 mg Q4HP PRN IV 04/05/25 12:00 Methylprednisolone Sodium Succinate 40 mg Q8HR IV 04/05/25 14:00 04/07/25 13:59 40 MG Pantoprazole Sodium 40 mg DAILY IV 04/06/25 10:00 04/07/25 09:36 40 MG Albuterol 2.5 mg Q4HR NEB 04/05/25 14:00 04/07/25 10:49 2.5 MG Ipratropium [place] 0.5 mg Q4HR NEB 04/05/25 14:00 04/07/25 10:49 0.5 MG Enoxaparin Sodium 60 mg Q12HR SC 04/05/25 22:00 04/07/25 09:37 60 MG Laboratory Results Laboratory Tests 04/07/25 05:44 Chemistry Test 04/07/25 05:44 Albumin 4.1 g/dL (3.2-4.8) Calcium Level 9.5 mg/dL (8.7-10.4) Total Protein 7.3 g/dL (5.7-8.2) LFT Test 04/07/25 05:44 Alanine Aminotransferase (ALT) 23 U/L (7-40) Alkaline Phosphatase 106 U/L (46-116) Aspartate Amino Transferase (AST) 29 U/L (13-40) Total Bilirubin 0.5 mg/dL (0.2-1.0) Urinalysis Test 04/05/25 10:49 Urine Color Light-yellow (Yellow) Urine Clarity Clear (Clear) Urine pH 5.0 (5.0-9.0) Urine Specific [place] 1.008 (1.001-1.035) Urine Protein Negative (Negative) Urine Ketones Negative (Negative) Urine Blood Negative /uL (Negative) Urine Nitrite Negative (Negative) Urine Bilirubin Negative (Negative) Urine Urobilinogen Normal mg/dL (Negative) Urine Leukocyte Esterase Negative /uL (Negative) Urine RBC 1 /hpf (0 - 4) Urine Microscopic WBC 1 /HPF (0-5) Urine Squamous Epithelial Cells Few /hpf (<5) Urine Bacteria Few /hpf (None Seen) H Urine Glucose Normal mg/dL (Normal) Labs and/or images reviewed: Labs reviewed by me Assessment/Plan Assessment/Plan Acute hypoxic respiratory failure Chest x-ray unremarkable Continue bronchodilator atc Supplemental oxygen to maintain SpO2 >92% solumedrol and protonix ordered ddimer fu results CT angiogram negative for pulmonary embolism Chest pain rule out ACS Right-sided chest pain since yesterday Troponin negative 3 No ischemic changes on ekg Echocardiogram completed today on 03/28/2025:- Normal right and left ventricle systolic function with estimated ejection fraction of 55%. Normal LV wall motion 2-Mild aortic, mitral and tricuspid regurgitation Telemetry monitoring Chronic stridor secondary to prior thyroid surgery Hypertensive heart disease Hypothyroidism status post thyroid surgery History of CVA GERD Status post cholecystectomy GI prophylaxis: Pantoprazole DVT prophylaxis: Lovenox Diet: Cardiac Plan discussed with: Patient Date of Service: Apr 07, 2025 Billing Provider: SHIRIN LUCIA MD Common Visit Codes: 04719-QMPCNJPMLN INP/OBS CARE(HIGH) SHIRIN LUCIA MD Apr 07, 2025 14:46
[2025-04-08] VITALS (14 sets, daily range): BP systolic 129–149; BP diastolic 66–76; PULSE 86–110; RESP 16–20; TEMP 36.6; O2SAT 93–100
[2025-04-08 09:46] LABS: Hematocrit 40.7 % (36.0-46.0); Hemoglobin 13.2 g/dL (12.2-16.2); Mean Corpuscular Hemoglobin 29.7 pg (28.0-32.0); Mean Corpuscular Volume 91.4 fL (80.0-100.0); Nucleated Red Blood Cells % 0.0 %
[2025-04-08 10:36] LABS: Triglycerides 73 mg/dL (< 150)
[2025-04-08 10:38] LABS: Cholesterol 195 mg/dL (< 200); HDL Cholesterol 69 mg/dL (40-59)
[2025-04-08] MEDS ORDERED: IBUP-1454 PO (15:01)
[2025-04-08] MEDS ORDERED: CEPH250C PO (15:01)
[2025-04-08] MEDS ORDERED: ALB5IS NEB (15:01)
[2025-04-08] MEDS ORDERED: GUAI200T6 PO (16:45)
--- NOTE | 2025-04-08 17:53 | DVHDSRES ---
Discharge Summary Date of Admission Resident Creating Document: DANY JORDAN Apr 05, 2025 at 11:51 Date of Discharge: Apr 08, 2025 Admitting Diagnosis Chest pain rule out ACS Labs/Diagnostic Data: Laboratory Results Test 04/08/25 09:28 04/07/25 05:44 04/05/25 12:12 04/05/25 10:49 White Blood Count 13.6 10^3/uL (4.4-10.8) Red Blood Count 4.45 10^6/uL (4.0-5.20) Hemoglobin 13.2 g/dL (12.2-16.2) Hematocrit 40.7 % (36.0-46.0) Mean Corpuscular Volume 91.4 fL (80.0-100.0) Mean Corpuscular Hemoglobin 29.7 pg (28.0-32.0) Mean Corpuscular Hemoglobin Concent 32.5 g/dL (32.0-36.0) Red Cell Distribution Width 14.1 % (11.8-14.3) Platelet Count 198 10^3/uL (140-450) Mean Platelet Volume 8.4 fL (6.9-10.8) Neutrophils (%) (Auto) 92.3 % (37.0-80.0) Lymphocytes (%) (Auto) 4.8 % (10.0-50.0) Monocytes (%) (Auto) 2.6 % (0.0-12.0) Eosinophils (%) (Auto) 0.0 % (0.0-7.0) Basophils (%) (Auto) 0.3 % (0.0-2.0) Neutrophils # (Auto) 12.5 10 ^3/uL (1.6-8.6) Lymphocytes # (Auto) 0.7 10 ^3/uL (0.4-5.4) Monocytes # (Auto) 0.3 10 ^3/uL (0-1.3) Eosinophils # (Auto) 0 10 ^3/uL (0-0.8) Basophils # (Auto) 0 10 ^3/uL (0-0.2) Nucleated Red Blood Cells 0.0 % Triglycerides Level 73 mg/dL (< 150) Cholesterol Level 195 mg/dL (< 200) LDL Cholesterol 121 mg/dL (< 100) HDL Cholesterol 69 mg/dL (40-59) Sodium Level 142 mmol/L (136-145) Potassium Level 4.3 mmol/L (3.5-5.1) Chloride Level 102 mmol/L (98-107) Carbon Dioxide Level 29 mmol/L (20-31) Anion Gap 11 (5-15) Blood Urea Nitrogen 10 mg/dL (9-23) Creatinine 0.67 mg/dL (0.550-1.02) Glomerular Filtration Rate Calc 99 mL/min (>90) BUN/Creatinine Ratio 14.9 (10.0-20.0) Serum Glucose 139 mg/dL (74-106) Calcium Level 9.5 mg/dL (8.7-10.4) Total Bilirubin 0.5 mg/dL (0.2-1.0) Aspartate Amino Transferase (AST) 29 U/L (13-40) Alanine Aminotransferase (ALT) 23 U/L (7-40) Alkaline Phosphatase 106 U/L (46-116) Total Protein 7.3 g/dL (5.7-8.2) Albumin 4.1 g/dL (3.2-4.8) D-Dimer, Quantitative 0.57 mg/L FEU (0.0-0.49) Troponin I High Sensitivity 3 ng/L (</=34) Urine Color Light-yellow (Yellow) Urine Clarity Clear (Clear) Urine pH 5.0 (5.0-9.0) Urine Specific [place] 1.008 (1.001-1.035) Urine Protein Negative (Negative) Urine Ketones Negative (Negative) Urine Blood Negative /uL (Negative) Urine Nitrite Negative (Negative) Urine Bilirubin Negative (Negative) Urine Urobilinogen Normal mg/dL (Negative) Urine Leukocyte Esterase Negative /uL (Negative) Urine RBC 1 /hpf (0 - 4) Urine Microscopic WBC 1 /HPF (0-5) Urine Squamous Epithelial Cells Few /hpf (<5) Urine Bacteria Few /hpf (None Seen) Urine Glucose Normal mg/dL (Normal) Test 04/05/25 10:46 Lipase 27 U/L (12-53) Other Laboratory Tests 04/08/25 09:28 04/07/25 05:44 Brief Hx & Hospital Course: 59-year-old female with a past medical history significant for hypertension, hypothyroidism, prior cerebrovascular accident (CVA), remote thyroid surgery with prior tracheal tube placement approximately 30 years ago resulting in chronic inspiratory stridor, and prior cholecystectomy, who presents with shortness of breath for approximately two weeks. The patient reports progressive dyspnea over the last two weeks, describing difficulty breathing and intermittent wheezing associated with cough. She also reports right-sided chest pain that began yesterday. She denies fever, chills, syncope, lower extremity swelling, or hemoptysis. She endorses clear sputum production. She does not use supplemental oxygen at home, but is currently requiring oxygen support in the hospital. She notes chronic noisy breathing related to her remote thyroid surgery and tracheal instrumentation but states that her current shortness of breath feels worse than baseline. She denies dysuria or urinary symptoms. In the emergency department, she received albuterol and ipratropium nebulizer treatments, with partial improvement. Laboratory evaluation demonstrated unremarkable CBC and CMP, negative troponins x3, and non-concerning urinalysis. Chest x-ray showed no acute cardiopulmonary process. Given persistent symptoms and chest discomfort, she is admitted for cardiac evaluation and further monitoring will check d-dimer to eval for pulmonary embolism. CT angiogram was done, which ruled out pulmonary embolism. Past medical history: As above Past surgical history: As above Family history: Noncontributory Allergies: None Home medications: PCP: Denies smoking,alcohol, drugs abuse Full code status Brief hospital course: On further evaluation patient was found to have acute hypoxic respiratory failure, chest x-ray was unremarkable and she was receiving breathing treatment and oxygen. She was treated with IV ceftriaxone as well. CT angiogram ruled out pulmonary embolism. The patient reported right-sided atypical chest pain, ACS was ruled out by troponin 3 times negative and EKG revealing no ischemic changes. Echocardiogram was completed on 03/28/2025 which showed normal right and left ventricle systolic function with EF 55% normal LV motion. Mild aortic, mitral and tricuspid regurgitation. Patient was monitored on telemetry throughout her stay.Patient also had chronic stridor secondary to prior thyroid surgery. Patient also had chronic stridor secondary to prior thyroid surgery. 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 On the day of discharge patient was hemodynamically stable, verbalized understanding of the treatment and discharge plan. All questions were answered to the patient's family as well. 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 Blood Pressure: 142/79 mmHg INDICATION Chest Pain RISK FACTORS Height: 5'2, Weight: 128 DIMENSIONS LVDd 3.7 (3.8-5.7cm) LA (2D) 2.9 (1.9-4.0cm) Aortic Root 2.6 (2.0- 3.7cm) LVDs 2.8 (2.5-4.0cm) LA (MM) (1.9-4.0cm) Aortic Cusp Exc 2.0 (1.5- 2.0cm) EF (%) 55.0 (55-70%) Rt. Atrium 4.0 (1.9-4.0cm) Asc. Aorta 3.0 cm IVSd 0.7 (0.7-1.1cm) RV (D) (1.8-2.4cm) PWd 0.8 (0.7-1.1cm) Mitral Valve Mitral Mitral Stenosis E wave 0.94m/s MV Mean GR. mmHg A wave 1.29m/s MV Peak GR. 89mmHg E/A ratio 0.7 2D MVA cm2 DECEL Time 117ms PRESS 1/2 Time ms Aortic Valve Aortic Valve Aortic Stenosis V1 1.21m/s AO Mean GR. 7mmHg V2 1.67m/s AO Peak GR. 11mmHg LVOT Diameter 2.1 (1.8-2.4cm) Doppler ROCAEL 2.51cm2 Pulmonic Valve V2 1.25m/s Tricuspid Valve TR Velocity 2.61m/s RVSP 27mmHg Other Information Technically limited study due to body habitus.pt very anxious unable to hold breathe/ follow commands Conclusion 1-Normal right and left ventricle systolic function with estimated ejection fraction of 55%. Normal LV wall motion 2-Mild aortic, mitral and tricuspid regurgitation PATIENT: DEVIN LAO ACCT: [id number] UNIT: [id number] : 1965 LOC: [facility] ROOM / BED: [address] [place] [address] AGE / SEX: 59 / F ADM STATUS: ADM IN SERVICE 1532 ORDERING PHYSICIAN: KEN PATTERSON DNP PROCEDURE(s): CTACH - CT ANGIO CHEST CONTRAST REASON: eval for pe elevated ddimer sob ORDER NUMBER(s): [id number], ACCESSION NUMBER(s): [id number] EXAM: CT CT ANGIO CHEST CONTRAST HISTORY: eval for pe elevated ddimer sob TECHNIQUE: CT angiogram was performed. CT scans at this facility use dose modulation, iterative reconstruction, and/or weight based dosing when appropriate to reduce radiation dose to as low as reasonably achievable. Coronal and sagittal reformations and maximum intensity projection images were created from the transaxial source data by the ambulatory technologist and workstation, as well as 3-D volume rendered images with MIPs. COMPARISON: XY CHEST TWO VIEWS ROUTINE on DOS: 04/05/25 FINDINGS: [LOWER NECK]: Question small area of upper thoracic to lower neck junction tracheal narrowing of indeterminate etiology correlate for tracheal stenosis (3- 21). [LYMPH NODES/MEDIASTINUM]: No abnormal lymph nodes by CT size criteria [CARDIOVASCULAR]: Normal cardiac size. No pericardial effusion. No aneurysmal dilatation of the great vessels. Bovine arch. No significant coronary artery calcifications. 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 Correlate for postprandial type pain. [PULMONARY ARTERIES]: No pulmonary arterial filling defect. Normal caliber of the main pulmonary artery. No evidence of elevated right heart pressures. [UPPER ABDOMEN]: Unremarkable. [MUSCULOSKELETAL]: No acute fracture or aggressive focal osseous lesion. Multilevel degenerative change of the visualized spine. [CHEST WALL]: Unremarkable. [LUNG PARENCHYMA/PLEURAL SPACE]: No consolidation, suspicious focal airspace opacity, or suspicious nodules. No pleural effusion or pneumothorax. IMPRESSION: 1. No CTA evidence of an acute pulmonary embolism. 2. Question small area of upper thoracic to lower neck junction tracheal narrowing of indeterminate etiology correlate for tracheal stenosis. 3. 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 4. Correlate for postprandial type pain. PATIENT: DEVIN LAO ACCT: [id number] UNIT: [id number] : 1965 LOC: ER ROOM / BED: / AGE / SEX: 59 / F ADM STATUS: REG ER SERVICE 0737 ORDERING PHYSICIAN: JORDEN BONILLA MD PROCEDURE(s): CXR2 - CHEST TWO VIEWS ROUTINE REASON: SOB ORDER NUMBER(s): [id number], ACCESSION NUMBER(s): [id number] CHEST TWO VIEWS ROUTINE CLINICAL HISTORY: SOB COMPARISON: None TECHNIQUE: Frontal and lateral view of the chest was obtained FINDINGS: Lines and Tubes: None Lungs: No focal consolidation. Pleura: No effusion. No pneumothorax. Cardiomediastinal contours: Unremarkable Bones: No acute osseous abnormality. IMPRESSION: 1. No acute cardiopulmonary disease. Condition at Discharge: Stable Final Diagnosis/Problems List Acute hypoxic respiratory failure Chest pain ruled out ACS Shortness of breaths ruled out pulmonary embolism Chronic stridor secondary to prior thyroid surgery Hypertensive heart disease Hypothyroidism status post thyroid surgery History of CVA GERD Status post cholecystectomy Discharge Disposition: Home Discharge Instruct/Medications Diet: Consistent carbohydrate, Cardiac 2g Na,low cholest Activity: No Restrictions, As Tolerated Follow Up/Referral: Follow up outpatient with PCP, DC clinic, cardiology Please schedule DC clinic with Dr Jordan ( Wednesday PM clinic) Medications: as per EMR Scheduled Albuterol Sulfate (Ventolin), 2.5 MG NEB Q4HR Cephalexin (Keflex Capsule), 2 CAP PO BID Enalapril Maleate (Enalapril Maleate), 10 MG PO DAILY, (Reported) Levothyroxine Sodium (Levothyroxine Sodium), 100 MCG PO DAILY, (Reported) Scheduled PRN Guaifenesin (Guaifenesin), 200 MG PO Q6HPRN PRN Ibuprofen (Ibuprofen), 1 TAB PO TID PRN Discharge Statement: "Patient was advised to return to the ER or call 911 if any headaches, dizziness, shortness of breath, chest pain, abdominal pain, bleeding, fevers, or worsening of medical condition. Patient was counseled about treatment plan, medications, possible side effects, patientverbalized understanding. All questions were answered to the best of my ability. This discharge took greater then 30 minutes in planning, reviewing documentation, counseling the patient, and discussing with other team members." ASSESSMENT ASSESSMENT Assessment Chest pain ruled out ACS Visit Coding STANDARD RES Billing Provider: SHIRIN LUCIA MD Date of Service if different f: Apr 08, 2025 Common Visit Codes: 56481-BAU/OBS DISCH DAY >30min DANY JORDAN Apr 08, 2025 17:53
--- NOTE | 2025-04-09 12:33 | ECG ---
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
== END 2025-04-08 17:42 | disposition home or self-care (01) | DRG 133 ==
LOC: ER 07:30 → OVERFLOW 11:51 → TELE-WESTW 16:36
PROVIDERS: ADMIT Internal Medicine; ATTEND Internal Medicine
DX: J96.01 Acute respiratory failure with hypoxia (principal); E03.9 Hypothyroidism, unspecified; R65.10 Systemic inflammatory response syndrome (SIRS) of non-infectious origin without acute organ dysfunction; I11.9 Hypertensive heart disease without heart failure; I08.3 Combined rheumatic disorders of mitral, aortic and tricuspid valves; K21.9 Gastro-esophageal reflux disease without esophagitis; Z90.49 Acquired absence of other specified parts of digestive tract; Z86.73 Personal history of transient ischemic attack (TIA), and cerebral infarction without residual deficits; Z88.0 Allergy status to penicillin; Z79.899 Other long term (current) drug therapy
CPT/HCPCS: 36415; 71046; 71275; 80048; 80053; 80061; 81001; 83690; 84484; 85025; 85379; 93005; 93306; 94640; 96374; 99291; G0378; J1956; J2470